=== PATIENT | male | born 1950 | race Caucasian/White ===

== ENCOUNTER 2018-12-16 20:42 | Emergency (ER) | payer MEDICARE, OTHER ==
--- NOTE | 2018-12-17 00:10 | RADIOLOGY REPORT (SQ) ---
EXAM DESCRIPTION: XR CHEST 1 VIEW COMPLETED DATE/TME: 12/16/2018 23:45 CLINICAL HISTORY: 68 years, Male, left arm pain COMPARISON: None. NUMBER OF VIEWS: 1 TECHNIQUE: Portable chest LIMITATIONS: None. FINDINGS: Heart size normal. Osteopenia. Lungs clear. No pneumothorax IMPRESSION: No acute cardiopulmonary process copyright 2010 [employer]- All Rights Reserved
[2018-12-17] MEDS ORDERED: KETOROLAC TROMETHAMINE 60 MG/2 ML SDV IM ONE (01:23)
[2018-12-17] MEDS ORDERED: LIDOCAINE 5% (700 MG) TRANSDERMAL ADH..PATCH TP ONE (01:23)
--- NOTE | 2018-12-17 01:29 | ER Document Report ---
ED General - General Chief Complaint: Shoulder Pain Stated Complaint: ARM/SHOULDER PAIN Time Seen by Provider: 12/16/18 23:51 Notes: Patient is a 68-year-old male has a past medical history of hypertension, hyperlipidemia, type 2 diabetes, presents complaining of approximately 18 hours of left sided upper extremity pain. States that he woke up with the discomfort felt a throbbing, moderate to severe pain in his left neck, left trapezius, and around the left scapula. States that he is having pain coming down into the entirety of the left upper extremity. Describes this as a throbbing, burning, stinging pain. States he took ibuprofen prior to coming to the hospital and has had significant relief of the pain. States that when it first started he could not raise his arm above the level of his shoulder but now is able to do so albei t with some discomfort. He denies any history of similar symptoms in the past. Denies any injury to the affected area. He adamantly denies any chest pain, shortness of breath, nausea, vomiting, pleuritic discomfort, or diaphoresis. Has not seen his primary care physician regarding today's concerns. TRAVEL OUTSIDE OF THE [place] IN LAST 30 DAYS: No - Related Data Allergies/Adverse Reactions: No Known Allergies Allergy (Unverified 12/16/18 20:48) Past Medical History - General Information source: Patient - Social History Smoking Status: Never Smoker Frequency of alcohol use: Occasional Drug Abuse: None Lives with: Alone Family History: Reviewed & Not Pertinent Review of Systems - Review of Systems Notes: Constitutional: Negative for fever. HENT: Negative for sore throat. Eyes: Negative for visual changes. Cardiovascular: Negative for chest pain. Respiratory: Negative for shortness of breath. Gastrointestinal: Negative for abdominal pain, vomiting or diarrhea. Genitourinary: Negative for dysuria. Musculoskeletal: Positive for left upper extremity pain, left-sided neck pain Skin: Negative for rash. Neurological: Negative for headaches, weakness or numbness. 10 point ROS negative except as marked above and in HPI. Physical Exam - Vital signs Vitals: Temp Pulse Resp BP Pulse Ox 98.1 F 78 18 150/77 H 94 12/16/18 21:44 12/16/18 21:44 12/16/18 21:44 12/16/18 21:44 12/16/18 21:44 Interpretation: Hypertensive Notes: PHYSICAL EXAMINATION: GENERAL: Well-appearing, well-nourished and in no acute distress. HEAD: Atraumatic, normocephalic. EYES: Pupils equal round and reactive to light, extraocular movements intact, sclera anicteric, conjunctiva are normal. ENT: nares patent, oropharynx clear without exudates. Moist mucous membranes. NECK: Normal range of motion, supple without lymphadenopathy, no midline cervical spine tenderness, step-offs or deformities LUNGS: Breath sounds clear to auscultation bilaterally and equal. No wheezes rales or rhonchi. HEART: Regular rate and rhythm without murmurs ABDOMEN: Soft, nontender, normoactive bowel sounds. No guarding, no rebound. No masses appreciated. EXTREMITIES: Mild pain with elevation of the left upper extremity above 90 degrees at the level of the shoulder. There is no deformity to the shoulder. There is pain on palpation of the left trapezius and left periscapular region. NEUROLOGICAL: No focal neurological deficits. Moves all extremities spontaneously and on command. 5 out of 5 biceps and triceps strength bilater ally. RMU motor and sensory distribution is intact bilaterally including against resistance on motor testing. PSYCH: Normal mood, normal affect. SKIN: Warm, Dry, normal turgor, no rashes or lesions noted. Course - Re-evaluation Re-evalutation: 12/17/18 01:29 Patient presents with signs and symptoms most consistent with a C6-7 cervical nerve root impingement. The patient had an onset of pain when he woke up this morning of a stinging, shooting pain in his left trapezius, left shoulder and radiating down his left upper extremity. He also reports periscapular pain. He denies any chest pain or shortness of breath. States that he took ibuprofen prior to coming to the hospital today and that most of the pain has now resol ana cristina. He states earlier he could not even raise his arm above his shoulder but now is able to range it much better and believes he has had significant improvement due to the NSAIDs. On exam RMU motor and sensory distribution is intact including against resistance on motor testing. He has noticed midline cervical spine tenderness. He has some increased pain with axial loading of the head with the head tilted towards the left. 5 out of 5 biceps and triceps strength bilaterally. The remainder the exam is otherwise unremarkable. EKG in triage does not show any acute ischemic changes. Patient was quite displeased with the amount of time that he had been here in the emergency department. Has still not had blood work drawn despite that it was ordered hours ago. The patient is adamant that he does not wish to receive any blood work. I did review with him that an atypical presentation of ACS would be in the differential although seems unlikely given the characterization of his symptoms. I did advise that we should obtain blood work today to definitively exclude this possibility including troponin acid testing. The patient does declined stating that he is feeling overall better, would like to go home and does not want obtain blood work. Understands the risks that we could be missing a myocardial infarction atypical presentation and had an EKG alone but not exclude this diagnosis. The patient understands this risk, verbally repeats this back to me. He will follow-up with his primary doctor. At this time will discharge with return precautions and follow-up recommendations. Verbal discharge instructions given a the bedside and opportunity for questions given. Medication warnings reviewed. Patient is in agreement with this plan and has verbalized understanding of return precautions and the need for primary care follow-up in the next 24-72 hours. - Vital Signs Vital signs: Temp Pulse Resp BP Pulse Ox 98.1 F 78 18 150/77 H 94 12/16/18 21:44 12/16/18 21:44 12/16/18 21:44 12/16/18 21:44 12/16/18 21:44 - Diagnostic Test Radiology reviewed: Image reviewed, Reports reviewed Radiology results interpreted by me: 12/17/18 01:27 Chest x-ray: No acute infiltrate pneumothorax - EKG Interpretation by Me Additional EKG results interpreted by me: 12/17/18 01:26 Sinus rhythm, rate 81. No ST elevations or depressions. QTC 474. Discharge - Discharge Clinical Impression: Left upper arm pain, Cervical nerve root impingement Condition: Good Disposition: HOME, SELF-CARE Additional Instructions: Your pain is related to impingement one of your cervical nerve roots and will take 6-8 weeks completely resolved. For your pain: Take ibuprofen 600 mg and acetaminophen 1000 mg every 6 hours together as needed for pain. In addition to this, purchased the product that is sold [id number] cold Aspercreme with lidocaine. Apply to the affected area per bottle instructions. You should also apply heat to the area regularly using an electric heating plant pad. Return to the emergency department immediately if you develop weakness, loss of sensation, chest pain, shortness of breath, have worsening of your symptoms, or any other symptoms that are worrisome to you.
[2018-12-17 01:30] VITALS: BP 155/86
--- NOTE | 2018-12-17 07:52 | EKG REPORT ---
SEVERITY:- ABNORMAL ECG - SINUS RHYTHM NONSPECIFIC INTRAVENTRICULAR CONDUCTION DELAY PROBABLE INFERIOR INFARCT, AGE INDETERMINATE : Confirmed by: Cayden Higgins MD 17-Dec-2018 07:52:05
== END 2018-12-17 02:03 | disposition home or self-care (01) ==
LOC: ER 20:42
DX: M79.602 Pain in left arm (principal); M75.42 Impingement syndrome of left shoulder; I10 Essential (primary) hypertension; E78.00 Pure hypercholesterolemia, unspecified; E11.9 Type 2 diabetes mellitus without complications
CPT/HCPCS: 71045; 93005; 93010; 99283